=== PATIENT | male | born 1965 | race Caucasian/White ===

== ENCOUNTER 2022-04-06 14:50 | Emergency (ER) | payer OTHER, SELFPAY ==
[2022-04-06 14:51] VITALS: BP 124/88; PULSE 70; RESP 14; TEMP 36.4; BMI 33.2
--- NOTE | 2022-04-06 14:53 | CT_ITS ---
EXAM: CT SPINE - CERVICAL WITHOUT IV REASON FOR EXAM: Male, 56 years old. NECK PAIN trauma HISTORY: NECK PAIN trauma Individualized dose optimization techniques were used for this CT. TECHNIQUE: Multiplanar images were obtained of the cervical spine. IV contrast was not utilized. COMPARISON: None. FINDINGS: The vertebral bodies do maintain their height. The odontoid process is intact. No pre-vertebral soft tissue swelling is seen. The intravertebral disc height is lost. There are scattered lymph nodes in the neck. There are degenerative changes of the osseous structures. There is bilateral facet arthropathy. There are scattered levels of foraminal stenosis. There are vascular calcifications. CT/Spine Cervical without Contras IMPRESSION: Degenerative changes of the cervical spine. There are no acute findings. Electronically Signed: Jignesh Briones MD at 15:50 EDT ,
--- NOTE | 2022-04-06 14:53 | CT_ITS ---
STUDY: CT BRAIN WITHOUT CONTRAST REASON FOR EXAM: Male, 56 years old. HEADACHE traumaTechnologist Notes PT FELL FROM LADDER 25FT. TECHNIQUE: Transaxial CT imaging of the brain was performed without administration of intravenous contrast material. Individualized dose optimization techniques were used for this CT. COMPARISON: None FINDINGS: Normal calvarium. Normal soft tissues. Normal size ventricles and extra-axial spaces for the patient''s age. Normal white matter tracts of the cerebral hemispheres. Normal basal ganglia and thalami. Normal brainstem. Normal cerebellum. There is no intracranial hemorrhage. There are no findings of an acute ischemic infarction. Normal visualized paranasal sinuses. ASPECTS 10 CT/Brain/Head without Contrast IMPRESSION: There are no acute intracranial findings. Electronically Signed: Jignesh Briones MD at 15:46 EDT ,
--- NOTE | 2022-04-06 14:53 | CT_ITS ---
EXAM: CT CHEST, ABDOMEN AND PELVIS WITH INTRAVENOUS CONTRAST CLINICAL INDICATION: trauma TECHNIQUE: Helically acquired images were obtained of the chest, abdomen and pelvis with intravenous contrast. This CT exam was performed using one or more of the following dose reduction techniques: automated exposure control, adjustment of the mA and/or kV according to patient size, and/or use of iterative reconstruction technique. This report was created using [employer] report generation technology. CONTRAST: 100 CC ISOVUE 300 RADIATION DOSE: CTDIvol = 16.29 mGy, DLP = 1419.10 mGy-cm COMPARISON: None. FINDINGS: CHEST: LUNGS AND PLEURAL SPACES: There is no pneumothorax. There is no demonstrated pleural abnormality. No mass. HEART: Unremarkable. Heart size is normal. No pericardial effusion. No significant coronary artery calcifications. MEDIASTINUM: Unremarkable. No mediastinal or hilar adenopathy. Esophagus is unremarkable. No hiatal hernia. THYROID: Unremarkable. No thyroid lesions. ABDOMEN: LIVER: There are hypodensities of the liver. These maybe cysts and have benign imaging features. ACR White Paper guidelines (Lorenzo, et al. JACR 2017; 14(11):0428-2197.) suggest no follow-up is necessary. GALLBLADDER AND BILE DUCTS: There is a solitary gallstone. No gallbladder distention or wall edema. No intra- or extrahepatic biliary ductal dilation. PANCREAS: Unremarkable. No focal cystic or solid mass. SPLEEN: There are multiple benign calcified granulomata of the spleen. ADRENALS: Unremarkable. No nodules. KIDNEYS AND URETERS: There are hypodensities in the right kidney. These are consistent for cysts. No follow up required. Normal renal size and position. No hydronephrosis. STOMACH AND BOWEL: Normal visualized stomach. Normal small intestine. Stool throughout the colon. No stomach or bowel distention. No focal inflammatory change. PELVIS: APPENDIX: The appendix is visualized and appears normal. BLADDER: Normal urinary bladder. REPRODUCTIVE: Unremarkable as visualized. No mass. CHEST, ABDOMEN and PELVIS: INTRAPERITONEAL SPACE: Unremarkable. No ascites or other fluid collection. No free air. BONES/JOINTS: There are multi-level degenerative changes of the thoracic spine. Acute superior endplate fracture of L1 with minimal compression. No retropulsed fragments. No suspicious lytic or blastic abnormality. SOFT TISSUES: There is a right-sided inguinal hernia containing adipose tissue. VASCULATURE: There is atherosclerotic calcification of the aortic arch with tortuosity and elongation of the aortic arch and descending thoracic aorta. There are calcifications of the abdominal aorta. This is consistent for atherosclerotic disease. There is no abdominal aortic aneurysm. No aortic dissection. No obvious central pulmonary embolism although this study was not performed with the pulmonary embolism protocol. LYMPH NODES: Unremarkable. No enlarged lymph nodes. CT/CT Chest, Abd, Pel w/Contrast IMPRESSION: 1. There are multi-level degenerative changes of the thoracic spine. 2. There is a solitary gallstone. 3. Acute superior endplate fracture of L1 with minimal compression. No retropulsed fragments. Electronically Signed: Jignesh Briones MD at 16:05 EDT ,
[2022-04-06] MEDS: 0.9% Normal Saline 1,000 ML 150 ML IV (15:00)
--- NOTE | 2022-04-06 15:03 | EX.ED.GENINJ ---
HPI History of Present Illness Chief Complaint: Trauma Detail of Chief Complaint: Fall down ladder with injury to both lower extremities Informant: patient Narrative Narrative: Patient presents to the emergency department after sustaining a fall down a ladder approximately 25 feet. Patient states that ladder was leaned up against a tree when he started to fall and he rode the ladder down and landed on his feet and then rolled. Patient complains of pain to both lower extremities. He denies striking his head or loss of consciousness. He denies chest or abdomen pain. Patient tells me he has a history of high cholesterol. He is not on any blood thinners. Patient's last tetanus shot was 2 to 3 years ago. Patient received 15 mg of morphine by squad. Patient was noted to have an open fracture of his left lower extremity. Tetanus Immunization: <5 years [facility] Medical History (Updated 04/06/22 @ 16:[address] Karina Montilla, ) Fracture of metatarsal of right foot, closed Open fracture of left tibia and fibula Allergy/AdvReac Type Severity Reaction Status Date / Time No Known Allergies Allergy Verified 04/06/22 14:58 Social History Smoking Status: Never smoker ROS ROS ED Review of Systems ROS Unobtainable: other Constitutional Constitutional ED: Reports lethargy; Denies chills, fever(s), sweats or weight loss Eyes Eyes: Denies blurry vision, change in vision or diplopia ENT ENT ED: Denies rhinorrhea or sore throat Cardiovascular Cardiovascular: Reports chest pain and racing heartbeat; Denies orthopnea Respiratory/Chest Respiratory/Chest: Reports dyspnea and dyspnea on exertion; Denies cough, orthopnea or sputum Gastrointestinal Gastrointestinal: Denies abdominal pain, diarrhea, nausea or vomiting Genitourinary Genitourinary ED: Denies dysuria, hematuria or urinary frequency Musculoskeletal Musculoskeletal: Reports other Details: Pain/trauma to the left lower extremity Pain/injury to right foot ; Denies arthralgias, back pain, myalgias or neck pain Integumentary Denies abscess, Abrasions or rash Neurologic Neurologic: Denies headache(s) or weakness Psychiatric Psychiatric: Denies anxiety, depression or suicidal thoughts Endocrine Endocrinology: Denies polydipsia, polyphagia or polyuria Hematologic/Lymphatic Hematologic/Lymphatic: Denies easy bleeding, easy bruising or lymphadenopathy Allergic/Immunologic Allergic/Immunologic ED: Denies mouth swelling, tongue swelling or urticaria EXAM Physical Exam Const Vital Signs: 04/06/22 14:51 04/06/22 15:07 04/06/22 16:00 Temperature 97.6 F L Temperature Source Temporal Pulse Rate 70 65 Respiratory Rate 14 16 Respiratory Effort Normal Respiratory Depth Normal Respiratory Pattern Normal Blood Pressure 124/88 H 129/96 H Blood Pressure Mean 100 107 Pulse Ox 98 98 Oxygen Delivery Method Room Air Room Air Room Air Positive well nourished and well developed General Appearance ED: well developed and NAD HEENT Reports TM's clear and moist mucous membranes normocephalic and atraumatic; Negative for trauma or tenderness Tympanic Membrane ED: Yes TM's clear Eyes PERRL and EOMs intact bilaterally General Eye ED: Negative for pale conjunctiva or scleral icterus Neck no lymphadenopathy, supple and no JVD General: Negative for tenderness Chest Wall inspection of chest normal and palpation of chest normal Chest: Negative for tenderness Resp normal respiratory effort and clear to auscultation bilaterally Effort and Inspection: Negative for respiratory distress or pain with movement Auscultation: Negative for rhonchi, wheezes or diminished lung sounds Cardio regular rate, regular rhythm, S1 normal heart sound, S2 normal heart sound and no murmurs Peripheral Pulses: pulses 2+ throughout GI normal to inspection, nondistended, normoactive bowel sounds, soft to palpation, non-tender, non-distended and no masses Back/Spine no CVA tenderness and no thoracic nor lumbar tenderness Extremity Extremity Narrative: Evaluation of the left lower extremity does reveal an open fracture just above the left ankle with obvious deformity. Patient has normal dorsal pedal and posterior tibial pulses. He is able to move his toes. Evaluation of his right lower extremity reveals diffuse tenderness about the right foot with obvious swelling with tenderness to the midfoot. Patient also has tenderness to the right calcaneus. Neurovascularly intact. General Extremety ED: Negative for edema General Extremity: Negative for edema Neuro oriented x3, CN's II-XII intact bilaterally, no sensory deficits noted and gait normal Sensorium / Orientation: awake, alert, oriented to person, oriented to place and oriented to time Motor Exam: strength 5/5 throughout and strength abnormal Psych mental status grossly normal Skin no rashes or lesions noted and no wounds MDM MDM MDM Narrative Medical decision making narrative: IV line established on arrival. Patient had a wet dressing applied over the open distal tib-fib fracture. Patient had skin of brain and C-spine which were unremarkable. CT scan of the chest was unremarkable. CT scan of the abdomen pelvis showed an L1 compression fracture superior endplate without retropulsed fragments. X-rays of the left tib-fib obtained showed a comminuted distal tibia and fibula fracture. X-rays of the right foot showed fractures of the first second third and fourth metatarsals with Lisfranc type fracture dislocation. Case discussed with orthopedic surgeon on-call at [place] I also discussed case with foot and ankle specialist on-call and both recommended transfer to trauma center. Patient initially preferred to go to [facility] and I spoke with their emergency room physician as well as the orthopedic surgeon on-call there and I was asked to transfer patient to level 1 trauma center. Case was discussed with [facility] emergency room physician who accepted transfer of patient to their facility. Patient did receive Ancef 1 g IV. Patient is up-to-date on tetanus. Lab Data Attestation: I reviewed the patient's lab results. Labs: Laboratory Results - last 24 hr 04/06/22 04/06/22 04/06/22 14:55 14:55 14:55 WBC 6.7 RBC 4.89 Hgb 15.3 Hct 44.6 MCV 91.2 MCH 31.3 MCHC 34.3 RDW Std Deviation 40.5 RDW Coeff of Jagdish 12.1 Plt Count 254 MPV 9.7 Immature Gran % (Auto) 1.800 H Neut % (Auto) 50.2 Lymph % (Auto) 32.5 [place] % (Auto) 10.6 H Eos % (Auto) 4.2 Baso % (Auto) 0.7 Absolute Neuts (auto) 3.4 Absolute Lymphs (auto) 2.17 Nucleated RBC % 0 Sodium 139 Potassium 3.9 Chloride 107 Carbon Dioxide 26.0 Anion Gap 6 BUN 17 Creatinine 1.38 H Estim Creat Clear Calc 59.77 Est GFR (MDRD) Af Amer 68 Est GFR (MDRD) Non-Af 57 L BUN/Creatinine Ratio 12.3 Glucose 134 H Calcium 9.3 Total Bilirubin 0.50 AST 49 H ALT 71 H Alkaline Phosphatase 65 Total Protein 6.7 Albumin 3.9 Globulin 2.8 Albumin/Globulin Ratio 1.4 Ethyl Alcohol < 3.0 Radiography Diagnostic Testing: Clinical Impression(s) from Imaging Studies Brain CT 04/06/22 14:53 IMPRESSION: There are no acute intracranial findings. Electronically Signed: Jignesh Briones MD at 15:46 EDT , Cervical Spine CT 04/06/22 14:53 IMPRESSION: Degenerative changes of the cervical spine. There are no acute findings. Electronically Signed: Jignesh Briones MD at 15:50 EDT , Chest/Abdomen/Pelvis CT 04/06/22 14:53 IMPRESSION: 1. There are multi-level degenerative changes of the thoracic spine. 2. There is a solitary gallstone. 3. Acute superior endplate fracture of L1 with minimal compression. No retropulsed fragments. Electronically Signed: Jignesh Briones MD at 16:05 EDT , Foot X-Ray 04/06/22 15:20 IMPRESSION: Fractures of the distal tibia and fibula. Electronically Signed: Jignesh Brioens MD at 15:48 EDT , Foot X-Ray 04/06/22 15:20 IMPRESSION: 1. There is an enthesophyte involving the posterior superior calcaneus at the site of insertion of the Achilles tendon. There is a calcaneal spur. 2. Fracture the base of the first metatarsal bone. Medial dislocation of the first tarsal metatarsal articulation. Fracture the base of the second through fifth metatarsal bone. Electronically Signed: Jignesh Briones MD at 15:49 EDT , Tibia/Fibula X-Ray 04/06/22 15:20 IMPRESSION: 1. Comminuted fracture of the distal tibia and fibula. 2. Soft tissue swelling overlying the distal lower leg. Electronically Signed: Jignesh Briones MD at 15:47 EDT , Tibia/Fibula X-Ray 04/06/22 15:20 IMPRESSION: Negative right tibia and fibula x-rays. Electronically Signed: Jignesh Briones MD at 15:46 EDT , 2 view x-rays of the left tib-fib obtained showed comminuted fracture of distal tibia and fibula and radiology was in agreement. X-rays 3 views of left foot obtained interpreted by myself as no acute fractures. Radiology was in agreement. Three-view x-rays of right foot obtained interpreted by myself is fractures of the first through the fourth metatarsals with Lisfranc type dislocation. Radiology in agreement. 2 view x-rays of right tib-fib obtained interpreted by myself no acute fractures. Radiology in agreement. Discharge Plan Triage Chief Complaint: Trauma ED Provider: Karina Montilla Dx/Rx/DC Orders Clinical Impression: Fracture of tibia with fibula, left, open, Closed fracture dislocation of right foot, Closed compression fracture of L1 vertebra Primary Care Provider: Care Physician,No Primary Referrals: Care Physician,No Primary [Primary Care Provider] - Disposition Disposition: DC/Tx to Another Type of HCF
[2022-04-06 15:05] LABS: Absolute Lymphocyte Count 2.17 X10^3/uL (0.83-4.51); Absolute Neutrophil Count 3.4 X10^3/uL (2.0-7.7); Basophil# 0.05 X10^3/uL; Basophil% 0.7 % (0-1); Eosinophil# 0.28 X10^3/uL; Eosinophils% 4.2 % (0-5); Hematocrit 44.6 % (40-54); Hemoglobin 15.3 g/dL (13.0-16.5); Lymphocyte # 2.17 X10^3/ul (0.83-4.51); Lymphocyte % 32.5 % (19-41); Mean Corp Hgb Conc 34.3 g/dL (32-36); Mean Corpuscular Hgb 31.3 pg (27.0-32.0); Mean Corpuscular Volume 91.2 fL (80-94); Mean Platelet Vol. 9.7 fl (6.2-12.0); Monocyte# 0.71 X10^3/uL; Monocyte% 10.6 % (0-10); NRBC Flagged by Analyzer 0 % (0-5); Neutrophil # 3.35 X10^3/uL (2.7-7.7); Neutrophil % 50.2 % (47-70); Platelet Count 254 K/mm3 (150-450); RBC Distribution Width CV 12.1 % (11.6-14.6); RBC Distribution Width SD 40.5 fl (35.1-43.9); Red Blood Count 4.89 M/mm3 (4.6-6.2); White Blood Count 6.7 K/mm3 (4.4-11.0)
[2022-04-06 15:07] VITALS: O2SAT 98
--- NOTE | 2022-04-06 15:20 | RAD_ITS ---
EXAM: XR LEFT TIBIA AND FIBULA, 2 VIEWS CLINICAL INDICATION: trauma pain TECHNIQUE: Frontal and lateral views of the left tibia and fibula. This report was created using [employer] report generation technology. COMPARISON: None. FINDINGS: BONES/JOINTS: Comminuted fracture of the distal tibia and fibula. Ankle mortise appears intact. Preservation of the joint space. No sclerotic or destructive changes observed. SOFT TISSUES: Soft tissue swelling overlying the distal lower leg. No radiopaque foreign body. RAD/Tibia & Fibula 2 Views IMPRESSION: 1. Comminuted fracture of the distal tibia and fibula. 2. Soft tissue swelling overlying the distal lower leg. Electronically Signed: Jignesh Briones MD at 15:47 EDT ,
--- NOTE | 2022-04-06 15:20 | RAD_ITS ---
EXAM: XR RIGHT TIBIA AND FIBULA, 2 VIEWS CLINICAL INDICATION: FELL OFF LADDER TECHNIQUE: Frontal and lateral views of the right tibia and fibula. This report was created using [employer] report generation technology. COMPARISON: None. FINDINGS: BONES/JOINTS: Unremarkable. No acute fracture. No subluxation. Normal alignment. Preservation of the joint space. No sclerotic or destructive changes observed. SOFT TISSUES: Unremarkable. No soft tissue swelling or gas. No radiopaque foreign body. RAD/Tibia & Fibula 2 Views IMPRESSION: Negative right tibia and fibula x-rays. Electronically Signed: Jignesh Briones MD at 15:46 EDT ,
--- NOTE | 2022-04-06 15:20 | RAD_ITS ---
EXAM: XR RIGHT FOOT COMPLETE, 3 OR MORE VIEWS CLINICAL INDICATION: FELL OFF LADDER fracture pain TECHNIQUE: Frontal, lateral and oblique views of the right foot. This report was created using [employer] technology. COMPARISON: None. FINDINGS: BONES/JOINTS: There is an enthesophyte involving the posterior superior calcaneus at the site of insertion of the Achilles tendon. There is a calcaneal spur. Fracture the base of the first metatarsal bone. Medial dislocation of the first tarsal metatarsal articulation. Fracture the base of the second through fifth metatarsal bone. Lucent area in the mid shaft of the first tarsometatarsal bone may be related to a bone cyst. SOFT TISSUES: Unremarkable. No soft tissue swelling or gas. No radiopaque foreign body. RAD/Foot 2 Views IMPRESSION: 1. There is an enthesophyte involving the posterior superior calcaneus at the site of insertion of the Achilles tendon. There is a calcaneal spur. 2. Fracture the base of the first metatarsal bone. Medial dislocation of the first tarsal metatarsal articulation. Fracture the base of the second through fifth metatarsal bone. Electronically Signed: Jignesh Briones MD at 15:49 EDT ,
--- NOTE | 2022-04-06 15:20 | RAD_ITS ---
EXAM: XR LEFT FOOT COMPLETE, 3 OR MORE VIEWS CLINICAL INDICATION: trauma fracture pain TECHNIQUE: Frontal, lateral and oblique views of the left foot. This report was created using [employer] report generation technology. COMPARISON: None. FINDINGS: BONES/JOINTS: Fractures of the distal tibia and fibula. There is an enthesophyte involving the posterior superior calcaneus at the site of insertion of the Achilles tendon. Preservation of the joint space. No sclerotic or destructive changes observed. SOFT TISSUES: Unremarkable. No soft tissue swelling or gas. No radiopaque foreign body. RAD/Foot 2 Views IMPRESSION: Fractures of the distal tibia and fibula. Electronically Signed: Jignesh Briones MD at 15:48 EDT ,
[2022-04-06 15:35] LABS: ALB/GLOB Ratio 1.4 RATIO (0.9-2.4); AST(SGOT) 49 U/L (15-37); Alanine Aminotransfer ALT/SGPT 71 U/L (16-61); Albumin, Serum 3.9 g/dL (3.2-5.0); Alkaline Phosphatase 65 U/L (45-117); Anion Gap 6 (5-15); BUN 17 mg/dL (7-18); BUN/Creat Ratio 12.3 RATIO (10-20); Calcium,Total 9.3 mg/dL (8.5-10.1); Chloride 107 mmol/L (98-107); Creatinine, Serum 1.38 mg/dL (0.70-1.30); EST Glomerular Filtration Rate 57 mL/min (>60); Est Glom Filt Rate - Afr Amer 68 mL/min (>60); Estimated Creatinine Clearance 59.77 ml/min; Globulin 2.8 g/dL (2.2-4.2); Glucose 134 mg/dL (74-106); Potassium 3.9 mmol/L (3.5-5.1); Protein, Total 6.7 g/dL (6.4-8.2); Sodium Level 139 mmol/L (136-145)
[2022-04-06] MEDS: Cefazolin 1 GM/50 ML BAG IV (15:37)
--- NOTE | 2022-04-06 15:40 | ED.RN ---
O2 dropped to 75% notified by radiology. Nonrebreather placed 100%, pulse ox readjusted. Up to 100% on RA currently.
--- NOTE | 2022-04-06 15:42 | CON.PCM.OR_ITS ---
HPI Consult Data Date of Consult: 04/06/22 HPI Narrative HPI Narrative: KASHIF SMITH, is a 56 M who presents after a fall off a ladder. I was called by the ED physician today at 340pm. The patient has an open tibia plafond (tib fib) fracture on the left and lisfranc injury with multiple metatarsal fractures left foot. [facility] Medical History (Updated 04/06/22 @ 15:43 by Raji Cerda MD) Fracture of metatarsal of right foot, closed Open fracture of left tibia and fibula Allergy/AdvReac Type Severity Reaction Status Date / Time No Known Allergies Allergy Verified 04/06/22 14:58 Social History Smoking Status: Never smoker Vital Signs Vital Signs Vital Signs: 04/06/22 14:51 04/06/22 15:07 Temperature 97.6 F L Temperature Source Temporal Pulse Rate 70 Respiratory Rate 14 Respiratory Effort Normal Respiratory Depth Normal Respiratory Pattern Normal Blood Pressure 124/88 H Blood Pressure Mean 100 Pulse Ox 98 Oxygen Delivery Method Room Air Room Air Weight Weight: 224 lb 13.944 oz Body Mass Index (BMI) 33.2 Physical Exam Narrative Open fracture left lower extremity per the ED physician. Lab / Micro Data Result Diagrams: 04/06/22 14:55 04/06/22 14:55 Labs: Laboratory Results - last 24 hr 04/06/22 14:55: WBC 6.7, RBC 4.89, Hgb 15.3, Hct 44.6, MCV 91.2, MCH 31.3, MCHC 34.3, RDW Std Deviation 40.5, RDW Coeff of Jagdish 12.1, Plt Count 254, MPV 9.7, Immature Gran % (Auto) 1.800 H, Neut % (Auto) 50.2, Lymph % (Auto) 32.5, [place] % (Auto) 10.6 H, Eos % (Auto) 4.2, Baso % (Auto) 0.7, Absolute Neuts (auto) 3.4, Absolute Lymphs (auto) 2.17, Nucleated RBC % 0 04/06/22 14:55: Sodium 139, Potassium 3.9, Chloride 107, Carbon Dioxide 26.0, An ion Gap 6, BUN 17, Creatinine 1.38 H, Estim Creat Clear Calc 59.77, Est GFR ( MDRD) Af Amer 68, Est GFR (MDRD) Non-Af 57 L, BUN/Creatinine Ratio 12.3, Glucose 134 H, Calcium 9.3, Total Bilirubin 0.50, AST 49 H, ALT 71 H, Alkaline Phosphatase 65, Total Protein 6.7, Albumin 3.9, Globulin 2.8, Albumin/Globulin Ratio 1.4 Assessment & Plan Assessment/Plan (1) Fracture of metatarsal of right foot, closed: PLAN: I reviewed the case with the ED physician Dr Escalera. The patient has severe comminution with involvement of the joint with an open fracture of tibia and fibula on the left and a complex lisfranc injury on the contra lateral side. This would be best treated at a high level trauma center, and the ED physician is in agreement and will initiate the transfer to a higher level of care. There were no further questions or concerns. (2) Open fracture of left tibia and fibula:
--- NOTE | 2022-04-06 15:44 | NURSING ---
CALLED [facility]SF[facility], THEN THE TRAUMA LINE
[2022-04-06 15:56] LABS: Alcohol, Blood (Medical)-Serum < 3.0 mg/dL
[2022-04-06 16:00] VITALS: BP 129/96; PULSE 65; RESP 16; O2SAT 98
--- NOTE | 2022-04-06 16:12 | NURSING ---
CALLED [facility]
--- NOTE | 2022-04-06 16:22 | NURSING ---
CALLED [facility], ETA IS 30 MIN
[2022-04-06] MEDS: Morphine 4 MG/ML Syringe IV (16:35)
[2022-04-06 16:45] VITALS: BP 128/90; PULSE 79; RESP 14; O2SAT 90; O2SAT 94
[2022-04-06 16:46] VITALS: O2SAT 94
--- NOTE | 2022-04-06 17:19 | ED.RN ---
report given to physicians
== END 2022-04-06 17:20 | disposition short-term general hospital (02) ==
PROVIDERS: Emergency Provider Emergency Medicine; Visit Provider Emergency Medicine
DX: S32.019A Unspecified fracture of first lumbar vertebra, initial encounter for closed fracture (principal); W11.XXXA Fall on and from ladder, initial encounter; S92.311A Displaced fracture of first metatarsal bone, right foot, initial encounter for closed fracture; S92.321A Displaced fracture of second metatarsal bone, right foot, initial encounter for closed fracture; S92.331A Displaced fracture of third metatarsal bone, right foot, initial encounter for closed fracture; S92.341A Displaced fracture of fourth metatarsal bone, right foot, initial encounter for closed fracture; S82.302B Unspecified fracture of lower end of left tibia, initial encounter for open fracture type I or II; S82.832B Other fracture of upper and lower end of left fibula, initial encounter for open fracture type I or II; S93.304A Unspecified dislocation of right foot, initial encounter
CPT/HCPCS: 70450; 71260; 72125; 73590; 73620; 73630; 74177; 80053; 82077; 85025; 96361; 96365; 96375; 99285; J7030; Q9967; A4216

== ENCOUNTER 2022-08-13 08:00 | Outpatient (RCR) | payer OTHER, SELFPAY ==
--- NOTE | 2022-06-06 18:43 | HP.PTEVAL_ITS ---
Patient's Visit Information MERLYN SMITH Jr. is a 56 year old M referred to Physical Therapy by Dr. Germain Dia DO with a diagnosis of CLOSED PILON FRATURE LEFT ,LISFRANIC DISLOCATION RIGHT ,. Date of Evaluation: 06/06/22 Physical Therapist: Merlyn Alegria, PT, Cert MDT, OCS - Visit Plan Frequency: 2x /Week Duration: 8 WEEK Plan: CAM BOOT ON ALL TIMES ,USES SCOOTER ,ONLY ABLE TO STAND. UNABLE TO DO AQUATIC THERAPY DUE TO INSURANCE. PT INTERVENTIONS ROM BIALTERAL ANKLE,FLEXABITIY CALF ,PROGRESS TO STRENGTHENING ANKLE AND QUADS/HAMS/HIP ,PER MD WITH PROGRESSIVE WB WITH GAIT TRAINING,BALANCE /PROPRIOCEPTION EX'S ,AND VASO - Subjective This 56 male presents to physical therapy with with closed pilon fracture - tibia/fibula fracture and Lisfranc fracture. Patient fell ladder cutting a tree ~ 25 ft caused fracture pilon -tibia/fibula fracture on left and foot right on Apr 06. Patient was transferred [facility] then had to be transferred to Level 2 trauma at [facility] . Patient had diagnostics x-rays/MRI's. Patient underwent left External fixator and Apr 07 ,then ORIF of right Lisfranc Apr 08. Patient had drain tube and was d/c for ~ 1week in W/C . Return to [facility] 3rd surgery Apr 3th ORIF fibula and Apr 21 surgery tibia ORIF. Patient was d/c NWB bilateral lower legs ~ 1month ,then ~ 3weeks ago using scooter some WB on right while using scooter. Patient seen last Friday okay to WB when standing ,but no walking . Patient had x-rays showed looking good with healing. RTD Jun 19 . Received order WB in water . Only stand on land. Patient has paresthesia/tingling left. Patient has edema left > right. Patient sleeping good. Patient is unable to ambulate due to WB limitations . Patient spouse does all cooking and cleaning ,needs some assist with bathing. Patient has scooter ,w/c , walker and crutches. Patient condition affects QOL ,return to walking and job demands/. SOCIAL : . VOACTION: [employer] - Pain Left Ankle Pain Intensity (Out of 10): 1 Pain Intensity Range: 10 Right Ankle Pain Intensity (Out of 10): 0 Pain Intensity Range: N/A - Objective POSTURE: pes cavus. NEURO: c/o paresthesia/tingling left foot ,lower leg. INSCION: well approximate with small scab left tibia. TRIMALLEOR JOINT: left 61.3 cm2 ,right 59.7 cm2. MOBILITY: uses scooter NWB LLE. AROM: dorsiflexion left 25 degrees from 0 ,right 5 degrees ,plantarflexion right 60 degrees ,left 45 degrees ,inversion /eversion left 0 degrees left ,right inversion 25 degrees ,eversion 5 degrees. MMT( peak force) : anteriortibials left 5.6,right 17.8 ,postertibials left 3.6 ,right 15.6,peroneus left 5.7,right 12.7,G-S left 6.7,right 17.6 ,. 2/5 left 2nd -5th toes. FLEXABILITY: flexibility mod/severe tight left ,right min tight - Balance/Special Test Scores Lower Extremity Functional Score: 10 - Goals Goal 1:: Patient to be I with HEP for bilateral ankles Goal Time Frame: 8-12 Weeks Goal 2:: Patient to demonstrate 75% improvement with increase function with gait and RTW Goal Time Frame: 8-12 Weeks Goal 3:: Patient to improve AROM right ankle by 5 degrees and left ankle by 10 degrees or> especially dorsiflexion to improve gait Goal Time Frame: 8-12 Weeks Goal 4:: Patient to improve MMT peak force left ankle by 10-15 ,and right 5 -10 to improve gait and function Goal Time Frame: 8-12 Weeks Goal 5:: Patient to ambulate with improve gait with normal WB and chayo Goal Time Frame: 8-12 Weeks Goal 6:: Patient to improve LFES score by 10-15 points or > to improve function and QOL. Goal Time Frame: 8-12 Weeks - Rehabilitation Potential Physical Therapy Diagnosis: This patient fell off 25 ft ladder caused left pilon fracture tibia/fibula and right Lisfranc with s/p ORIF with multiple surgeries with deficits with decrease ROM ,edema , decrease strength left > right ,unable to ambulate with WB limitations thus impairs ability to RTW and function thus w ill need skilled PT Rehabilitation Potential: Good - Anticipated Interventions Patient/Client Instruction: Educate patient on: Condition, Plan of Care For the Purpose of:: To decrease pain, To increase ROM, To improve muscle performance and motor function, To improve ability to perform ADL's, To increase tolerance to activity/condition/position, To improve performance and independence with ADL's, To improve ability of physical actions for home/community/work/leisure, To improve health of tissue, To decrease soft tissue restriction, To increase flexibility/ROM, To improve endurance, To improve balance, To improve safety with gait, To improve tolerance to ADL's Therapeutic Exercise to Include: Strength training, Power training, Endurance training, Balance training, Flexibilty training, Gait and locomotor training, Passive ROM, Active ROM Comment: ANKLE /HIPS/KNEES For the Purpose of:: To decrease pain, To increase ROM, To improve muscle performance and motor function, To improve ability to perform ADL's, To increase tolerance to activity/condition/position, To improve ability of physical actions for home/community/work/leisure, To improve gait and locomotor functions, To improve health of tissue, To decrease soft tissue restriction, To increase flexibility/ROM, To improve endurance, To improve balance, To prevent re-injury Cryotherapy (ice pack, ice massage): Yes Vasopneumatic device: Yes For the Purpose of:: To decrease swelling/inflammation, To improve nutrient delivery to tissue, To increase oxygenation perfusion, To improve health of tissue, To decrease soft tissue restriction Thank you for the opportunity to evaluate your patient. For Medicare and Medicare HMO plans, please review the plan of care and approve it. It will need to be FAXED BACK to us at [phone] for Medicare purposes. For Medicare only, by signing this I certify the plan of care. Please let me know if there are questions or concerns regarding this plan of care. Physician Signature: Date:
--- NOTE | 2022-08-13 08:42 | HP.PTDCSUM ---
It has been my pleasure to treat MERLYN SMITH . referred by Dr. Germain Dia DO, with the diagnosis of CLOSED PILON FRATURE LEFT ,LISFRANIC DISLOCATION RIGHT , for a total of 20 visit(s). Discharge Date: 08/13/22 Please see the following information for a summary of their discharge status. Subjective: DOING WELL ,READY FOR D/C Left Ankle Pain Intensity (Out of 10): 0 Right Ankle Pain Intensity (Out of 10): 0 % Improvement: 80 Objective/Function: POSTURE: WFL. GAIT: reciprocal pattern mild decrease anterior tibial. MMT: ankle 5/5 DF/EV/IN ,PF 4/5. AROM: DF 0 degrees ,PF 60 degrees ,IN 25 degrees ,EV 5 degrees. STAIRS: alternating rails descending Goal 1:: Patient to be I with HEP for bilateral ankles Goal Progress: Goal Met Goal 2:: Patient to demonstrate 75% improvement with increase function with gait and RTW Goal Progress: Goal Met Goal 3:: Patient to improve AROM right ankle by 5 degrees and left ankle by 10 degrees or> especially dorsiflexion to improve gait Goal Progress: Goal Met Goal 4:: Patient to improve MMT peak force left ankle by 10-15 ,and right 5 -10 to improve gait and function Goal Progress: Goal Met Goal 5:: Patient to ambulate with improve gait with normal WB and chayo Goal Progress: Goal Met Goal 6:: Patient to improve LFES score by 10-15 points or > to improve function and QOL. Goal Progress: Goal Met Plan: D/C Discharge Comments: HEP If there are questions or concerns regarding this patient's physical therapy, please feel free to call me at [phone]. Thank you for the referral of this patient. Sincerely, Merlyn Alegria, PT, Cert MDT, OCS Balance/Gait/Functional tests - Balance/Special Test Scores Lower Extremity Functional Score: 64
== END 2022-08-13 19:00 | disposition home or self-care (01) ==
LOC: PT 08:00
DX: S82.872D Displaced pilon fracture of left tibia, subsequent encounter for closed fracture with routine healing; Z98.890 Other specified postprocedural states; S93.324D Dislocation of tarsometatarsal joint of right foot, subsequent encounter
CPT/HCPCS: 97110; 97161